=== PATIENT | female | born 1960 | race Caucasian/White ===

== ENCOUNTER → 2016-11-13 | Outpatient (CLI) | payer OTHER | LOC: HEART CORB 15:06 | DX: R01.1 Cardiac murmur, unspecified (principal); R00.2 Palpitations ==

== ENCOUNTER → 2016-11-15 | Outpatient (CLI) | payer OTHER | LOC: HEART CORB 13:39 | DX: R01.1 Cardiac murmur, unspecified (principal); R00.2 Palpitations | CPT/HCPCS: 93306 ==